=== PATIENT | female | born 1970 | race Caucasian/White ===

== ENCOUNTER 2019-01-02 18:09 | Emergency (ER) | payer MEDICARE, MEDICAID ==
[~2019-01-02] VITALS: Ht 165.1 cm; Wt 69.0 kg
[~2019-01-02 18:09] MED LIST: ALBU6.7H INH; CLOB15CR11 TP; CLON-529 PO; GUAI120015 PO; HYDR25CA PO; ONDA4TAB59 PO; ONDA4TAB6 PO
[2019-01-02 18:53] VITALS: BP 130/86
--- NOTE | 2019-01-02 19:05 | NUR ---
DONNIE SEEN HERE ON 12/28
[2019-01-02] MEDS ORDERED: PSEU-259 PO (20:44)
[2019-01-02] MEDS ORDERED: GUAI237S46 PO (20:44)
[2019-01-02] MEDS ORDERED: BENZ-16 PO (20:44)
== END 2019-01-02 21:01 | disposition home or self-care (01) ==
LOC: ER 18:09
DX: J20.9 Acute bronchitis, unspecified (principal); I10 Essential (primary) hypertension; M19.90 Unspecified osteoarthritis, unspecified site; G89.29 Other chronic pain; M54.9 Dorsalgia, unspecified; F12.90 Cannabis use, unspecified, uncomplicated; Z90.49 Acquired absence of other specified parts of digestive tract; Z56.0 Unemployment, unspecified
CPT/HCPCS: 99283

== ENCOUNTER 2019-07-05 11:18 | Emergency (ER) | payer MEDICARE, MEDICAID ==
[~2019-07-05] VITALS: Ht 165.1 cm; Wt 61.0 kg
[~2019-07-05 11:18] MED LIST changes: -ALBU6.7H INH; +ALBU6.7H9 INH; +PSEU-259 PO
[2019-07-05 11:24] VITALS: BP 131/84
[2019-07-05] MEDS ORDERED: DOXY100C43 PO (12:14)
== END 2019-07-05 12:30 | disposition home or self-care (01) ==
LOC: ER 11:20
DX: T22.10XA Burn of first degree of shoulder and upper limb, except wrist and hand, unspecified site, initial encounter (principal); L03.114 Cellulitis of left upper limb; I10 Essential (primary) hypertension; M19.90 Unspecified osteoarthritis, unspecified site; G89.29 Other chronic pain; F12.90 Cannabis use, unspecified, uncomplicated; F41.9 Anxiety disorder, unspecified; Z88.8 Allergy status to other drugs, medicaments and biological substances; Z79.2 Long term (current) use of antibiotics; Z79.899 Other long term (current) drug therapy; Z90.49 Acquired absence of other specified parts of digestive tract; Z98.890 Other specified postprocedural states; Z56.0 Unemployment, unspecified; X08.8XXA Exposure to other specified smoke, fire and flames, initial encounter; Y93.89 Activity, other specified; Y92.89 Other specified places as the place of occurrence of the external cause; Y99.8 Other external cause status
CPT/HCPCS: 99283

== ENCOUNTER 2020-12-25 09:25 | Emergency (ER) | payer MEDICARE, MEDICAID ==
[~2020-12-25] VITALS: Ht 165.1 cm; Wt 68.0 kg
[2020-12-25] MEDS ORDERED: triamcinolone acetonide 40mg/ml inj IM ONE (10:10)
[2020-12-25] MEDS ORDERED: HYDR15CR40 TOP (10:29)
[2020-12-25 10:50] VITALS: BP 135/75
== END 2020-12-25 10:50 | disposition home or self-care (01) ==
LOC: ER 09:30
DX: L30.9 Dermatitis, unspecified (principal); I10 Essential (primary) hypertension; M19.90 Unspecified osteoarthritis, unspecified site; G89.29 Other chronic pain; F41.9 Anxiety disorder, unspecified; F12.90 Cannabis use, unspecified, uncomplicated; Z90.49 Acquired absence of other specified parts of digestive tract; Z98.890 Other specified postprocedural states; Z56.0 Unemployment, unspecified; Z88.8 Allergy status to other drugs, medicaments and biological substances; Z79.899 Other long term (current) drug therapy
CPT/HCPCS: 96372; 99283; J3301